=== PATIENT | female | born 1985 | race Caucasian/White ===

== ENCOUNTER 2023-08-20 00:30 | Emergency (ER) | payer OTHER ==
[2023-08-20 00:40] VITALS: BP 105/56; PULSE 86; RESP 16; TEMP 97.8; BMI 29.0
[2023-08-20] MEDS ORDERED: SULFAMETHOXAZOLE/TRIMETHOPRIM 800MG/160MG D.S. TABLET PO ONE (00:45)
[2023-08-20] MEDS ORDERED: SULFAMETHOXAZOLE/TRIMETHOPRIM 800MG/160MG D.S. TABLET ONE (00:47)
== END 2023-08-20 01:05 | disposition home or self-care (01) ==
LOC: FER 00:30
DX: L08.9 Local infection of the skin and subcutaneous tissue, unspecified (principal)
CPT/HCPCS: 99283-25